=== PATIENT | male | born 1995 | race Caucasian/White ===

== ENCOUNTER 2017-01-27 19:09 | Emergency (ER) | payer SELFPAY ==
[2017-01-27] MEDS ORDERED: PROTONIX 40 MG IV IV ONE ×2 (19:30→19:43)
[2017-01-27] MEDS ORDERED: Sodium Chloride 0.9% 1000 ML 1,000 ML IV STA (19:30)
[2017-01-27] MEDS ORDERED: Zofran 4 MG/2 ML VIAL IV ONE (19:30)
[2017-01-27] MEDS ORDERED: Sodium Chloride 0.9% 1000 ML 1,000 ML ONE (19:43)
[2017-01-27] MEDS ORDERED: Zofran 4 MG/2 ML VIAL ONE (19:43)
--- NOTE | 2017-01-27 19:43 | ERPHSYRPT ---
- History of Present Illness Time Seen by Provider: 01/27/17 19:10 Historian: patient Physician History: PATIENT COMPLAINS OF ABDOMINAL PAIN EPIGASTRIC AND LEFT FLANK PAIN FOR 1 WEEK, ON OCCASION RADIATES INTO LEFT TESTICLE. DENIES FEVER, CHILLS, EMESIS, DIARRHEA , URINARY SYMPTOMS, FREQUENCY, URGENCY OR DYSURIA. ADMITS TO OCCASIONAL COUGH. Timing/Duration: week(s) Activities at Onset: none Quality: sharpness Abdominal Pain Onset Location: epigastric, flank Pain Radiation: other (TESTICLE) Severity of Pain-Max: moderate Severity of Pain-Current: moderate Modifying Factors: Improves With: eating Associated Symptoms: other (COUGHING) Previous symptoms: no prior history Allergies/Adverse Reactions: Penicillins Allergy (Verified 01/27/17 19:40) - Review of Systems Constitutional: No Fever, No Chills Eyes: No Symptoms Ears, Nose, & Throat: No Symptoms Respiratory: No Symptoms, No Cough, No Dyspnea Cardiac: No Symptoms, No Chest Pain, No Edema, No Syncope Abdominal/Gastrointestinal: Abdominal Pain, No Nausea, No Vomiting, No Diarrhea Genitourinary Symptoms: Flank Pain, No Dysuria Musculoskeletal: No Symptoms, No Back Pain, No Neck Pain Skin: No Rash Neurological: No Dizziness, No Focal Weakness, No Sensory Changes Psychological: No Symptoms Endocrine: No Symptoms All Other Systems: Reviewed and Negative - Nursing Vital Signs Nursing Vital Signs: Initial Vital Signs Temperature 99.2 F Temperature Source Oral Pulse Rate 72 Respiratory Rate 16 Blood Pressure [Right Arm] 124/82 Pain Intensity 8 - Physical Exam General Appearance: no apparent distress, alert Eye Exam: PERRL/EOMI, eyes nml inspection Ears, Nose, Throat Exam: normal ENT inspection, pharynx normal, moist mucous membranes Neck Exam: normal inspection, non-tender, supple, full range of motion Respiratory Exam: normal breath sounds, lungs clear, No respiratory distress Cardiovascular Exam: regular rate/rhythm, normal heart sounds Gastrointestinal/Abdomen Exam: soft, normal bowel sounds, tenderness ( EPIGASTRIC TENDERNESS), No mass Back Exam: normal inspection, normal range of motion, No CVA tenderness, No vertebral tenderness Extremity Exam: normal inspection, normal range of motion, pelvis stable Neurologic Exam: alert, oriented x 3, cooperative, normal mood/affect, nml cerebellar function, sensation nml, No motor deficits Skin Exam: normal color, warm, dry SpO2 Interpretation: normal SpO2: 97 Oxygen Delivery: Room Air - Radiology Exams Chest X-ray Interpretation: Interpreted by me (THERE IS A RIGHT INFRAHILAR INFILTRATE) - CT Exams Abdomen/Pelvis CT Interpretation: Tele-radiologist Report (NORMAL APPENDIX, NORMAL ABDOMEN AND PELVIS) Ordered Tests: Active Orders 24 hr Category Date Time Status Clean Catch Urine Specimen STAT Care 01/27/17 19:30 Active IV Insertion STAT Care 01/27/17 19:30 Active ABDOMEN AND PELVIS W CONTRAST [CT] Stat Exams 01/27/17 19:31 Taken CHEST 2 VIEWS (PA AND LAT) Stat Exams 01/27/17 20:05 Taken AMYLASE Stat Lab 01/27/17 19:43 Completed CBC W DIFF Stat Lab 01/27/17 19:43 Completed CMP Stat Lab 01/27/17 19:43 Completed LIPASE Stat Lab 01/27/17 19:43 Completed UA W/ MICROSCOPIC Stat Lab 01/27/17 19:43 Completed Urine Triage Profile Stat Lab 01/27/17 19:43 Completed Medication Summary Discontinued Medications Generic Name Dose Route Start Last Admin Trade Name Hernanq PRN Reason Stop Dose Admin Fentanyl Citrate 100 mcg 01/27/17 20:37 01/27/17 20:53 Sublimaze 100 Mcg/2 Ml IV 01/27/17 20:38 100 mcg STAT ONE Administration Fentanyl Citrate Confirm 01/27/17 20:52 Sublimaze 100 Mcg/2 Ml Administered 01/27/17 20:53 Dose 100 mcg .ROUTE .STK-MED ONE Sodium Chloride 1,000 mls @ 999 mls/hr 01/27/17 19:30 01/27/17 19:47 Sodium Chloride 0.9% 1000 Ml IV 01/27/17 20:30 999 mls/hr .Q1H1M STA Administration Sodium Chloride Confirm 01/27/17 19:43 Sodium Chloride 0.9% 1000 Ml Administered 01/27/17 19:44 Dose 1,000 mls @ ud .ROUTE .STK-MED ONE Ondansetron HCl 4 mg 01/27/17 19:30 01/27/17 19:47 Zofran 4 Mg/2 Ml Vial IV 01/27/17 19:31 4 mg STAT ONE Administration Ondansetron HCl Confirm 01/27/17 19:43 Zofran 4 Mg/2 Ml Vial Administered 01/27/17 19:44 Dose 4 mg .ROUTE .STK-MED ONE Pantoprazole Sodium 40 mg 01/27/17 19:30 01/27/17 19:47 Protonix 40 Mg Iv IV 01/27/17 19:31 40 mg STAT ONE Administration Pantoprazole Sodium Confirm 01/27/17 19:43 Protonix 40 Mg Iv Administered 01/27/17 19:44 Dose 40 mg IV .STK-MED ONE Lab/Rad Data: Laboratory Result Diagrams 01/27/17 19:43 01/27/17 19:43 Laboratory Results 01/27/17 01/27/17 01/27/17 Range/Units 19:43 19:43 19:43 WBC (4.0-10.5) K/mm3 RBC (4.1-5.6) M/mm3 Hgb (12.5-18.0) gm/dl Hct (42-50) % MCV (78-100) fl MCH (26-32) pg MCHC (32-36) g/dl RDW (11.5-14.0) % Plt Count (150-450) K/mm3 MPV (6-9.5) fl Gran % (36.0-66.0) % Lymphocytes % (24.0-44.0) % Monocytes % (0.0-12.0) % Eosinophils % (0.00-5.0) % Basophils % (0.0-0.4) % Basophils # (0-0.4) Sodium 142 (136-145) mEq/L Potassium 3.8 (3.5-5.1) mEq/L Chloride 106 (98-107) mEq/L Carbon Dioxide 24.9 (21-32) mEq/L Anion Gap 14.6 (5-15) MEQ/L BUN 14 (9-20) mg/dL Creatinine 1.05 (0.55-1.30) mg/dl Estimated GFR > 60 ML/MIN Glucose 87 (70-110) MG/DL Calcium 9.0 (8.5-10.1) mg/dL Total Bilirubin 1.0 (0.2-1.0) mg/dL AST 22 (15-37) U/L ALT 28 (12-78) U/L Alkaline Phosphatase 106 (46-116) U/L Serum Total Protein 7.7 (6.4-8.2) gm/dL Albumin 4.2 (3.4-5.0) g/dL Amylase 44 (25-115) U/L Lipase 72 L (73-393) U/L Ur Collection Type CLEAN CATCH Urine Color YELLOW (YELLOW) Urine Appearance CLEAR (CLEAR) Urine pH 5.5 (5-6) Ur Specific Ridott 1.015 (1.005-1.025) Urine Protein 100 (Negative) Urine Glucose (UA) NEGATIVE (NEGATIVE) mg/dL Urine Ketones NEGATIVE (NEGATIVE) Urine Nitrite NEGATIVE (NEGATIVE) Urine Bilirubin NEGATIVE (NEGATIVE) Urine Urobilinogen 0.2 (0-1) mg/dL Urine WBC (Auto) NEGATIVE (NEGATIVE) Urine RBC (Auto) MODERATE (0-5) Farzad/ul Urine Microscopic RBC 2-5 (0-2) /HPF Urine Microscopic WBC 0-2 (0-5) /HPF Ur Epithelial Cells RARE (FEW) /HPF Urine Bacteria FEW (NEGATIVE) /HPF Urine Mucus SLIGHT (NEGATIVE) /HPF Urine Opiates Level NEG. (NEGATIVE) Ur Methadone NEG. (NEGATIVE) Urine Barbiturates NEG. (NEGATIVE) Ur Phencyclidine (PCP) NEG. (NEGATIVE) Urine Amphetamine NEG. (NEGATIVE) U Benzodiazepine Level NEG. (NEGATIVE) Urine Cocaine NEG. (NEGATIVE) Urine Marijuana (THC) NEG. (NEGATIVE) Specimen Received 01/27/17194401/27/17 Range/Units 19:43 WBC 7.1 (4.0-10.5) K/mm3 RBC 5.75 H (4.1-5.6) M/mm3 Hgb 17.4 (12.5-18.0) gm/dl Hct 49.5 (42-50) % MCV 86.1 (78-100) fl MCH 30.2 (26-32) pg MCHC 35.2 (32-36) g/dl RDW 13.4 (11.5-14.0) % Plt Count 267 (150-450) K/mm3 MPV 9.8 H (6-9.5) fl Gran % 72.2 H (36.0-66.0) % Lymphocytes % 14.8 L (24.0-44.0) % Monocytes % 10.8 (0.0-12.0) % Eosinophils % 2.1 (0.00-5.0) % Basophils % 0.1 (0.0-0.4) % Basophils # 0.01 (0-0.4) Sodium (136-145) mEq/L Potassium (3.5-5.1) mEq/L Chloride (98-107) mEq/L Carbon Dioxide (21-32) mEq/L Anion Gap (5-15) MEQ/L BUN (9-20) mg/dL Creatinine (0.55-1.30) mg/dl Estimated GFR ML/MIN Glucose (70-110) MG/DL Calcium (8.5-10.1) mg/dL Total Bilirubin (0.2-1.0) mg/dL AST (15-37) U/L ALT (12-78) U/L Alkaline Phosphatase (46-116) U/L Serum Total Protein (6.4-8.2) gm/dL Albumin (3.4-5.0) g/dL Amylase (25-115) U/L Lipase (73-393) U/L Ur Collection Type Urine Color (YELLOW) Urine Appearance (CLEAR) Urine pH (5-6) Ur Specific Ridott (1.005-1.025) Urine Protein (Negative) Urine Glucose (UA) (NEGATIVE) mg/dL Urine Ketones (NEGATIVE) Urine Nitrite (NEGATIVE) Urine Bilirubin (NEGATIVE) Urine Urobilinogen (0-1) mg/dL Urine WBC (Auto) (NEGATIVE) Urine RBC (Auto) (0-5) Farzad/ul Urine Microscopic RBC (0-2) /HPF Urine Microscopic WBC (0-5) /HPF Ur Epithelial Cells (FEW) /HPF Urine Bacteria (NEGATIVE) /HPF Urine Mucus (NEGATIVE) /HPF Urine Opiates Level (NEGATIVE) Ur Methadone (NEGATIVE) Urine Barbiturates (NEGATIVE) Ur Phencyclidine (PCP) (NEGATIVE) Urine Amphetamine (NEGATIVE) U Benzodiazepine Level (NEGATIVE) Urine Cocaine (NEGATIVE) Urine Marijuana (THC) (NEGATIVE) Specimen Received - Progress Progress: improved Progress Note: 01/27/17 19:42 PATIENT GIVEN IV FLUIDS NORMAL SALINE 1 LITER/HR, ZOFRAN 4MG, PROTONIX 40MG IV , FENTANYL 0.1MG IV 01/27/17 21:15 Counseled pt/family regarding: lab results, diagnosis, need for follow-up, rad results - Departure Time of Disposition: 21:30 Departure Disposition: Home Clinical Impression: ABDOMINAL PAIN, ACUTE BRONCHITIS Condition: Stable Critical Care Time: No Additional Instructions: FOLLOWUP WITH FAMILY PHYSICIAN FOR EVALUATION. ANTIBIOTIC ZITHROMAX 250MG, 2 TABLETS DAY 1 THEN 1 TABLET DAILY FOR 4 DAYS. PEPCID 20MG TWICE DAILY FOR ABDOMINAL PAIN AND ULTRAM 50MG EVERY 4 HOURS FOR PAIN NEEDED. Prescriptions: Tramadol HCl 50 mg [Ultram 50 mg] 50 mg PO Q4H PRN PRN #12 tablet PRN Reason: Pain Azithromycin 250 mg [Zithromax 250 MG TABLET] 250 mg PO ZPACK #6 tablet Famotidine 20 mg [Pepcid 20 MG] 20 mg PO BID #20 tablet
[2017-01-27 19:46] LABS: BASOPHIL % 0.1 % (0.0-0.4); Eosinophil % 2.1 % (0.00-5.0); Granulocytes % 72.2 % (36.0-66.0); Lymphocytes % 14.8 % (24.0-44.0); Mean Cell Volume 86.1 fl (78-100); Mean Platelet Volume 9.8 fl (6-9.5); Monocytes % 10.8 % (0.0-12.0); Platelet Count 267 K/mm3 (150-450); Red Blood Count 5.75 M/mm3 (4.1-5.6); Red Cell Distribution Width 13.4 % (11.5-14.0); White Blood Count 7.1 K/mm3 (4.0-10.5)
[2017-01-27 19:59] LABS: Mean Corpuscular Hemoglobin 30.2 pg (26-32)
[2017-01-27 20:00] LABS: Bacteria FEW /HPF (NEGATIVE); COMPLETE URINE MICROSCOPIC? YES; Collection Type CLEAN CATCH; Epithelial Cells RARE /HPF (FEW); Mucus SLIGHT /HPF (NEGATIVE); Ph 5.5 (5-6); WBC 0-2 /HPF (0-5)
[2017-01-27 20:07] LABS: ALBUMIN 4.2 g/dL (3.4-5.0); ALKALINE PHOSPHATASE 106 U/L (46-116); ANION GAP 14.6 MEQ/L (5-15); BLOOD UREA NITROGEN 14 mg/dL (9-20); CHLORIDE 106 mEq/L (98-107); Carbon Dioxide 24.9 mEq/L (21-32); Glucose 87 MG/DL (70-110); LIPASE 72 U/L (73-393); Potassium 3.8 mEq/L (3.5-5.1); SGOT/AST 22 U/L (15-37); SGPT/ALT 28 U/L (12-78); SODIUM 142 mEq/L (136-145); Total Protein 7.7 gm/dL (6.4-8.2)
[2017-01-27] MEDS ORDERED: SUBLIMAZE 100 MCG/2 ML IV ONE (20:37)
[2017-01-27] MEDS ORDERED: SUBLIMAZE 100 MCG/2 ML ONE (20:52)
[2017-01-27] MEDS ORDERED: Zithromax 250 MG TABLET PO ONE (21:14)
[2017-01-27] MEDS ORDERED: Zithromax 250 MG TABLET ONE (21:21)
[2017-01-27 21:25] VITALS: BP 132/68; PULSE 60; O2SAT 97
--- NOTE | 2017-01-28 08:34 | XRAY ---
Indication: Epigastric pain. Multiple contiguous axial images obtained through the abdomen and pelvis using 80 cc Isovue 370 contrast only. Comparison: None Lung bases are clear. Heart is not enlarged. Noncontrasted stomach and bowel loops appear nonobstructed. Mild scattered colonic fecal debris throughout and minimal sigmoid diverticulosis. Normal appendix. No free fluid/air. 5 mm right lower pole renal cortical cyst. Remaining liver, gallbladder, pancreas, spleen, adrenal glands, kidneys, ureters, bladder, and aorta appear unremarkable. No pathologic retroperitoneal lymphadenopathy. Osseous structures intact. Impression: Right renal cyst, mild fecal stasis, and minimal sigmoid diverticulosis. No acute intra-abdominal/pelvic abnormalities. Comment: Preliminary interpretation was made by [facility]. No critical discrepancy. CT DI 20.01
--- NOTE | 2017-01-28 08:35 | XRAY ---
Indication: Cough. Comparison: None PA/lateral chest demonstrates normal heart, lungs, and bony thorax.
== END 2017-01-27 21:34 | disposition home or self-care (01) ==
LOC: ED 19:09
DX: R10.9 Unspecified abdominal pain (principal); J20.9 Acute bronchitis, unspecified; R10.13 Epigastric pain
CPT/HCPCS: 36000; 36415; 71020; 74177; 80053; 80307; 81000; 82150; 83690; 85025; 96374; 96375; 99284; J2405; J3010; A9270-GY